=== PATIENT | male | born 1970 | race Caucasian/White ===

== ENCOUNTER 2022-06-27 19:37 | Emergency (ER) | payer OTHER, SELFPAY ==
--- NOTE | ~2022-06-27 | XR_ITS ---
EXAMINATION: [id number] Exam Date/Time: 06/27/2022 20:10 CDT HISTORY: fall Comparison: None available. RESULT: Lines, tubes, and devices: None. Lungs and pleura: Clear. Cardiomediastinal silhouette: Normal. Other: No acute osseous or upper abdominal finding. IMPRESSION: No acute cardiopulmonary process. No acute osseous finding in the left ribs. Reviewed, dictated and finalized at location K.
--- NOTE | 2022-06-27 19:39 | ECG_ITS ---
Measurements Intervals [place] Rate: 82 P: 62 CT: 185 QRS: 11 QRSD: 108 T: 54 QT: 358 QTc: 419 Interpretive Statements SINUS RHYTHM INCOMPLETE RIGHT BUNDLE BRANCH BLOCK [90+ ms QRS DURATION, TERMINAL R IN V1/V2, 40+ ms S IN I/aVL/V4/V5/V6] NO PREVIOUS ECG AVAILABLE FOR COMPARISON Electronically Signed On 06-28-2022 17:12:44 CDT by Antoni Mg M.D.
[2022-06-27 19:58] VITALS: BP 108/95; PULSE 86; RESP 18; TEMP 36.6; O2SAT 97
[2022-06-27 19:58] LABS: Basophils Percent Auto 0.6 % (0.2-1.2); Eosinophils Absolute Auto 0.1 K/mm3 (0-0.3); Eosinophils Percent Auto 1.7 % (0-4.4); Hematocrit 43.8 % (42.0-52.0); Hemoglobin 15.4 g/dL (14.0-18.0); Immature Granulocyte Absolute 0.01 K/mm3 (0.00-0.031); Immature Granulocyte Percent A 0.2 % (0-0.5); Lymphocytes Absolute Auto 1.62 K/mm3 (0.9-3.2); Mean Corpuscular HGB Conc 35.2 g/dl (32-36); Mean Corpuscular Hemoglobin 31.2 pg (26-34); Mean Corpuscular Volume 88.8 fl (80-100); Mean Platelet Volume 10.2 fl (7.4-10.4); Monocytes Absolute Auto 0.5 K/mm3 (0.1-0.6); Monocytes Percent Auto 8.3 % (2.6-8.5); Neutrophils Absolute Auto 4.2 K/mm3 (1.3-6.7); Neutrophils Percent Auto 64.2 % (45.5-73.1); Platelet Count Result 205 k/mm3 (150-375); Red Blood Count 4.93 M/mm3 (4.6-6.20); Red Cell Distribution Width 13.2 % (11.5-14.5); White Blood Count 6.5 K/mm3 (4.5-10.0)
[2022-06-27 20:08] LABS: Alanine Aminotransferase 28 U/L (6-50); Albumin Level 4.6 g/dL (3.5-5.1); Alkaline Phosphatase 89 U/L (38-126); Anion Gap 9 mmol/L (8-16); Aspartate Amino Transferase 25 U/L (17-59); Bilirubin,Total 0.5 mg/dL (0.2-1.3); Blood Urea Nitrogen 27 mg/dL (9-20); Calcium 8.2 mg/dL (8.4-10.2); Carbon Dioxide 23 mmol/L (22-30); Chloride 105 mmol/L (98-107); Estimated CRCL calculation 94 ml/min; Estimated Glomerular Filt Rate > 60; Glucose 121 mg/dL (65-110); Lipase 67 U/L (23-300); Potassium 3.9 mmol/L (3.4-5.0); Sodium 137 mmol/L (137-145)
[2022-06-27 20:09] LABS: INR 1.1; Prothrombin Time 13.6 Seconds (11.1-14.7)
[2022-06-27 20:10] LABS: Partial Thromboplastin Time 28.1 SECONDS (22.3-36.8)
[2022-06-27 20:19] LABS: Troponin I < 0.012 ng/mL (0.000-0.034)
--- NOTE | 2022-06-27 23:22 | ED.FALL ---
HPI - Fall General Chief Complaint: Chest Pain Stated Complaint: chest pain Time Seen by Provider: 06/27/22 23:01 History of Present Illness HPI Narrative: 52-year-old male presents after he tripped at work and fell onto some milk rates landing on his left chest, he is endorsing pain in his left ribs, worse when he takes deep breaths. No abdominal pain. Related Data Allergies Allergy/AdvReac Type Severity Reaction Status Date / Time No Known Allergies Allergy Verified 06/27/22 20:04 Review of Systems Review of Systems: CONST: No fever. HEENT: No sore throat C/V: Left-sided chest tenderness RESP: Pain with deep breaths GI: no abdominal pain : No dysuria. M/S: No joint pain. SKIN: Abrasions to left arm NEURO: [No headache or focal numbness or weakness] PSYCH: [No depression] [facility] Past Medical History Medical History (Updated 06/27/22 @ 23:26 by Ade Carlson MD) Arm fracture Surgical History Surgical History (Updated 06/27/22 @ 23:26 by Ade Carlson MD) History of surgery on arm Exam Narrative: EXAMINATION OF ORGAN SYSTEMS/BODY AREAS: Constitutional: Vital signs per nursing GENERAL:Appears to be in some pain but no severe distress HEAD: Normal with no signs of head trauma. EYES: EOMI, conjunctiva normal ENT: Hearing grossly intact LUNGS: Nonlabored breathing. CTAB. Tenderness to left lower anterior ribs HEART: [Regular rate and rhythm] ABD: [Soft], no rigidity, no tenderness to abdomen EXT: Normal range of motion SKIN: Abrasion to left ribs, left arm NEURO: [Alert and oriented x 3. No gross focal sensory or strength deficits.] PSYCH: Normal affect Course Vital Signs Vital signs: Vital Signs Temperature 98 F 06/27/22 19:58 Pulse Rate 86 06/27/22 19:58 Respiratory Rate 18 06/27/22 19:58 Blood Pressure 108/95 H 06/27/22 19:58 Pulse Oximetry 97 06/27/22 19:58 Oxygen Delivery Room Air 06/27/22 19:58 Temperature 98 F 06/27/22 19:58 Pulse Rate 86 06/27/22 19:58 Respiratory Rate 18 06/27/22 19:58 Blood Pressure 108/95 H 06/27/22 19:58 Pulse Oximetry 97 06/27/22 19:58 Oxygen Delivery Room Air 06/27/22 19:58 MDM - Fall MDM Narrative Medical decision making narrative: 52-year-old male presenting after he had a mechanical fall at work and landed on his left ribs/chest, now with left rib pain, worse when he takes deep breaths. Vital signs stable here, nonlabored respirations, no abdominal tenderness or bruising, I have low concern for splenic injury as he has already been here for multiple hours and has no increasing abdominal pain or rigidity, nor any lightheadedness. Rib x-ray here does not show any broken ribs, no pneumothorax, he is reassured and I have given him strict return precautions if he were to have any worsening symptoms including any abdominal pain, he is discharged with pain medications, incentive spirometry and follow-up to primary care. Lab Data Result diagrams: 06/27/22 19:47 06/27/22 19:47 Labs: Lab Results 06/27/22 06/27/22 06/27/22 Range/Units 19:47 19:47 19:47 WBC 6.5 (4.5-10.0) K/mm3 RBC 4.93 (4.6-6.20) M/mm3 Hgb 15.4 (14.0-18.0) g/dL Hct 43.8 (42.0-52.0) % MCV 88.8 (80-100) fl MCH 31.2 (26-34) pg MCHC 35.2 (32-36) g/dl RDW 13.2 (11.5-14.5) % Plt Count 205 (150-375) k/mm3 MPV 10.2 (7.4-10.4) fl Immature Gran % (Auto) 0.2 (0-0.5) % Neut % (Auto) 64.2 (45.5-73.1) % Lymph % (Auto) 25.0 (18.3-44.2) % [place] % (Auto) 8.3 (2.6-8.5) % Eos % (Auto) 1.7 (0-4.4) % Baso % (Auto) 0.6 (0.2-1.2) % Lymph # (Auto) 1.62 (0.9-3.2) K/mm3 [place] # (Auto) 0.5 (0.1-0.6) K/mm3 Eos # (Auto) 0.1 (0-0.3) K/mm3 Baso # (Auto) 0.0 (0.0-0.1) K/mm3 Abs Immat Gran (auto) 0.01 (0.00-0.031) K/mm3 Absolute Neuts (auto) 4.2 (1.3-6.7) K/mm3 Absolute Nucleated RBC 0.0 (0.0-0.012) K/mm3 Nucleated RBC % 0.0 (0.0-0.2
== END 2022-06-27 23:33 | disposition home or self-care (01) ==
LOC: ANHED 23:26
PROVIDERS: Emergency Provider Emergency Medicine
DX: S20.212A Contusion of left front wall of thorax, initial encounter (principal); W01.198A Fall on same level from slipping, tripping and stumbling with subsequent striking against other object, initial encounter
CPT/HCPCS: 36415; 71101; 80053; 83690; 84484; 85025; 85610; 85730; 93005; 99284